=== PATIENT | male | born 1955 | race Caucasian/White ===

== ENCOUNTER → 2016-08-05 | Outpatient (CLI) | payer BC ==
[2016-08-05 07:50] LABS: CH 30.1; CHCM 36.5; HCT 41.5 % (39.0-53.0); HDW 3.54; HGB 14.7 gm/dL (13.0-17.5); Hyperchromasia Slight; MCH 29.3 pg (25.0-35.0); MCHC 35.3 g/dL (31.0-37.0); MCV 82.9 fL (80.0-100.0); Mean Platelet Volume 6.5; Poikilocytosis Slight; RBC 5.01 m/uL (4.30-5.90); RDW 13.6 % (11.5-15.5); WBC 8.7 k/uL (3.8-10.6)
[2016-08-05 08:08] LABS: Anion Gap 9 mmol/L; Blood Urea Nitrogen 16 mg/dL (9-20); Carbon Dioxide 25 mmol/L (22-30); Chloride 106 mmol/L (98-107); Non-African American GFR(MDRD) >60 (>60 ml/min/1.73 sqM); Potassium 4.3 mmol/L (3.5-5.1); Sodium 140 mmol/L (137-145)
== END | disposition home or self-care (01) ==
LOC: LABPAT 07:22
PROVIDERS: ATTEND Internal Medicine Interventional Cardiology
DX: I27.0 Primary pulmonary hypertension (principal)
CPT/HCPCS: 80051; 82565; 84520; 85027

== ENCOUNTER 2016-08-09 05:45 | Day surgery (SDC) | payer BC ==
[2016-08-09] MEDS ORDERED: ATORVASTATIN 80 MG TAB PO STA (06:04)
[2016-08-09] MEDS ORDERED: ALPRAZolam 0.5 MG TAB PO PRN (06:04)
[2016-08-09] MEDS ORDERED: SODIUM CHLORIDE 0.9% 1,000 ML in EMPTY BAG 1 BAG IV ONE (06:04)
[2016-08-09] MEDS ORDERED: ASPIRIN 325 MG TAB PO STA (06:04)
[2016-08-09] MEDS ORDERED: BENZOCAINE SPRAY 100 APPLIC/CAN TOPICAL PRN (06:04)
[2016-08-09] MEDS ORDERED: NITROGLYCERIN SL TABS 0.4 MG TAB SUBLINGUAL PRN (06:04)
[2016-08-09] MEDS ORDERED: ALPRAZolam 0.25 MG TAB PO PRN (06:04)
[2016-08-09] MEDS ORDERED: SODIUM CHLORIDE 0.9% 1,000 ML IV ONE (06:27)
[2016-08-09 06:41] LABS: INR 1.2 (<1.1); Prothrombin Time 12.4 sec (9.0-12.0)
[2016-08-09] MEDS ORDERED: diphenhydrAMINE 50 MG/ML 1 ML VIAL IVP ONE (07:30)
[2016-08-09] MEDS ORDERED: MIDAZOLAM 2 MG/2 ML VIAL IV ONE (07:30)
[2016-08-09] MEDS ORDERED: LIDOCAINE 2% INJ 20 MG/ML SQ ONE (07:34)
[2016-08-09] MEDS ORDERED: ENOXAPARIN 60 MG/0.6 ML SYRINGE SQ STA (07:34)
[2016-08-09] MEDS ORDERED: WARFARIN 10 MG TAB PO ONE (08:00)
[2016-08-09 08:04] LABS: Site PA
[2016-08-09 08:05] LABS: Site FA; Site RA
[2016-08-09] MEDS ORDERED: HYDROmorphone 2 MG/ML 1 ML SYRINGE IV ONE (08:10)
[2016-08-09] MEDS ORDERED: IOHEXOL 350 MG/ML 125ML BOTTLE INJ ONE (08:15)
[2016-08-09] MEDS ORDERED: SODIUM CHLORIDE 0.9% 1,000 ML IV SCH (08:30)
[2016-08-09] MEDS ORDERED: ACETAMINOPHEN TAB 325 MG TAB PO PRN (08:55)
[2016-08-09] MEDS ORDERED: METOPROLOL TARTRATE 25 MG TAB PO SCH (09:00)
[2016-08-09 09:08] VITALS: TEMP 97.8
[2016-08-09] MEDS ORDERED: fentaNYL (PF) 50 MCG/ML 2 ML AMP ONE (12:06)
[2016-08-09] MEDS ORDERED: MIDAZOLAM 2 MG/2 ML VIAL ONE (12:06)
[2016-08-09] MEDS: BENZOCAINE SPRAY 100 APPLIC/CAN TOPICAL ONE ×2 (12:26→12:34)
[2016-08-09] MEDS ORDERED: fentaNYL (PF) 50 MCG/ML 2 ML AMP IV ONE (12:38)
[2016-08-09] MEDS ORDERED: MIDAZOLAM 2 MG/2 ML VIAL IVP ONE ×2 (12:38→12:45)
[2016-08-09 13:02] VITALS: RESP 16
[2016-08-09 14:44] VITALS: BP 101/72
--- NOTE | 2016-08-09 14:44 | ECHOT ---
DATE OF SERVICE: CLINICAL INFORMATION: PROCEDURE: Mr. Kimball is a 61-year-old gentleman who is seen for the cardiac who underwent transesophageal echocardiogram to assess the aortic prosthetic valve. The patient was given intravenous sedation with versed and fentanyl and transesophageal echocardiogram was performed without any complications. FINDINGS: Left ventricular chamber is normal in size with normal left ventricular systolic functions. Mitral valve morphology is normal. Mild mitral regurgitation is noted. There is no evidence of thrombus in the left atrium or atrial appendage. Pulmonary vein flow was normal. There is normally functioning prosthetic mechanical prosthetic valve is noted in the aortic position. The leaflets are thin. There is no definite evidence of any thrombus or vegetations. The mean peak gradient was 30 and mean gradient was 20 mmHg across aortic prosthetic valve by transthoracic pictures. There was a physiological aortic regurgitation was noted, Intraatrial septum is intact. There is possible small PFO with [id number]-[id number] shunt only noted on coughing. There is mild atherosclerotic changes noted in the descending thoracic aorta. FINAL IMPRESSION: 1. There is mechanical prosthetic valve in aortic position which is opening normally. 2. The leaflets are thin. 3. There is no definite evidence of any vegetations or thrombus. 4. The mean gradient of 30 and peak gradient of 30 mmHg was noted across the prosthetic aortic valve by transthoracic pictures. 5. There is a physiological small aortic regurgitation noted. 6. There is physiologic mitral regurgitation is noted too. 7. The left ventricular systolic function is normal. There is evidence of mild mitral regurgitation and tricuspid and mitral valve morphology is normal. 8. There is a small PFO with iqfcb-[id number] shunt is noted while the patient is coughing. 9. There is minimal atherosclerotic plaque noted in the descending thoracic aorta.
[2016-08-09 16:49] VITALS: PULSE 78
[2016-08-09] MEDS ORDERED: ATORVASTATIN 80 MG TAB PO SCH (21:00)
[2016-08-09] MEDS ORDERED: amLODIPine 2.5 MG TAB PO SCH (21:00)
[2016-08-09] MEDS ORDERED: LISINOPRIL 5 MG TAB PO SCH (21:00)
--- NOTE | 2016-08-10 10:03 | CC ---
DATE OF SERVICE: 08/09/2016 PROCEDURE: Right and left heart catheterization and coronary angiography. Performed by Dr. Jaqueline Russell. CLINICAL INFORMATION: Melchor Kimball is a 61-year-old gentleman with a history of seizure disorder, probable bicuspid aortic valve, but had significant stenosis and regurgitation and in 2000 underwent aortic valve replacement with a mechanical #23 [employer] [employer]it valve. This procedure was performed here at [facility]. Because of increasing symptoms of chest discomfort with activity and shortness of breath and based on echocardiogram with valve dysfunction, he was advised to have coronary angiography and a transesophageal echo and brought in for the procedure electively. PROCEDURE NOTE: Under local anesthesia and strict aseptic precautions, a 6 Solomon Islander introducer was placed in the right femoral artery and 8 Solomon Islander introducer in the right femoral vein. Using a balloon-tipped floatation catheter, I performed right heart catheterization, check the hemodynamics and also all the pressors. I performed thermodilution hemodynamic assessment as well. Subsequently, using a standard left Raghu catheter, I performed coronary angiography of the left system. Using an AR2 catheter, I performed selective coronary injection of the right coronary artery. I did not check any LV pressures. Patient has a mechanical aortic valve. The sheath was taken out and Angio-Seal device used to secure hemostasis. The venous sheath was taken out and manual compression used to secure hemostasis and he was sent to the room in stable condition. He will have a transesophageal echo at noon time. CARDIAC CATHETERIZATION FINDINGS: The right atrial pressure was 10 mmHg, right ventricular pressure was 32/10, the pulmonary capillary wedge pressure was 14 mmHg. The V-wave was 21, pulmonary arterial pressure was 32/16 with a mean of 21. Thermodilution cardiac output was 6.6 L and a Georgina cardiac output was 6.3 L. CORONARY ANGIOGRAPHIC FINDINGS: RIGHT CORONARY ARTERY: A dominant vessel, totally occluded in the midportion and the PDA branch is very well opacified by injection of the left system and is a graftable vessel. RCA has 100% mid occlusion. LEFT MAIN CORONARY ARTERY: Short, patent, disease-free vessel that bifurcates into LAD and circumflex. Left main itself is free of significant disease. LEFT ANTERIOR DESCENDING CORONARY ARTERY: Good caliber vessel extends along the anterior wall, gives off septal and diagonal branches, runs all the way to the apex. The mid LAD has an 80% stenosis which represents progression of disease. This patient did not have any significant CAD when he underwent aortic valve replacement in 2000. LEFT POSTERIOR CIRCUMFLEX CORONARY ARTERY: This is a nondominant vessel, good caliber, good distribution, minor irregularities. No significant disease. LEFT VENTRICULOGRAM: This was not performed. FINAL IMPRESSION: This patient has significantly elevated pressures on the right side with a right atrial pressure in the 10 mmHg. There is no significant pulmonary hypertension. There is a total occlusion of right coronary artery, which is filling from collaterals coming from the left system. The left main and circumflex are free of significant disease. Left anterior descending artery is a large caliber, large distribution vessel, with 80% mid lesion. RECOMMENDATIONS: I am recommending that following transesophageal echo, we will make a definitive determination, but if there is Prosthetic valve dysfX he will require an aortic valve replacement with a tissue valve and a RODRIGUEZ to LAD and a vein graft to the RCA, if the valve is OK, will do PCI of LAD and consider PCI of RCA SUPERVISOR MARBLE at a later date. Findings were discussed with the patient and his [id number]-xp-eug. His was not available but she would come back later on today. I also spoke to Dr. Michele and I will have him see the patient as an outpatient if he needs Surgery. Patient has received 10 mg of Coumadin and also 60 mg of Lovenox and his anticoagulation will be resumed and aspirin 81 mg daily and Lopressor 25 mg daily were added. Patient will be discharged later today after the transesophageal echo. Moderate conscious sedation for 40 min was provided with Versed and Benadryl. Pt was monitored closely. MTDD
[2016-08-10] MEDS ORDERED: WARFARIN 5 MG TAB PO SCH (21:00)
[2016-08-10] MEDS ORDERED: WARFARIN 2.5 MG TAB PO SCH (21:00)
== END 2016-08-09 16:10 | disposition home or self-care (01) ==
LOC: CATHCVL 05:45
PROVIDERS: ATTEND Internal Medicine Interventional Cardiology
DX: I25.110 Atherosclerotic heart disease of native coronary artery with unstable angina pectoris (principal); I25.82 Chronic total occlusion of coronary artery; I08.0 Rheumatic disorders of both mitral and aortic valves; I10 Essential (primary) hypertension; Z95.4 Presence of other heart-valve replacement; Z82.49 Family history of ischemic heart disease and other diseases of the circulatory system; G40.909 Epilepsy, unspecified, not intractable, without status epilepticus; Z79.01 Long term (current) use of anticoagulants; Z79.899 Other long term (current) drug therapy
CPT/HCPCS: 93312; 93320; 93325; 93460; 85018; 82810; 85610; 99152 ×2; 99153 ×2; C1760; C1769 ×3; C1894 ×2; J2001; J2250; J1170; J1200; J1650; J3010; Q9967

== ENCOUNTER → 2016-08-16 | Outpatient (CLI) | payer BC | END | disposition home or self-care (01) | LOC: LABWHC1 16:20 | PROVIDERS: ATTEND Psychiatry & Neurology Neurology | DX: G40.909 Epilepsy, unspecified, not intractable, without status epilepticus (principal) | CPT/HCPCS: 36415; 80177 ==

== ENCOUNTER → 2016-08-24 | Outpatient (CLI) | payer BC ==
[2016-08-24 10:03] LABS: CH 29.7; CHCM 34.5; HDW 3.31; HGB 14.2 gm/dL (13.0-17.5); MCH 28.5 pg (25.0-35.0); MCV 86.5 fL (80.0-100.0); Mean Platelet Volume 7.1; RBC 4.97 m/uL (4.30-5.90); RDW 13.9 % (11.5-15.5); WBC 7.6 k/uL (3.8-10.6)
[2016-08-24 10:36] LABS: Anion Gap 9 mmol/L; Blood Urea Nitrogen 16 mg/dL (9-20); Carbon Dioxide 28 mmol/L (22-30); Chloride 105 mmol/L (98-107); Non-African American GFR(MDRD) >60 (>60 ml/min/1.73 sqM); Potassium 4.3 mmol/L (3.5-5.1); Sodium 142 mmol/L (137-145)
== END | disposition home or self-care (01) ==
LOC: LABPAT 09:25
PROVIDERS: ATTEND Internal Medicine Interventional Cardiology
DX: I25.10 Atherosclerotic heart disease of native coronary artery without angina pectoris (principal)
CPT/HCPCS: 36415; 80051; 82565; 84520; 85027

== ENCOUNTER 2016-08-30 06:24 | Day surgery (SDC) | payer BC ==
[~2016-08-30 06:24] MED LIST: ALPRAZolam 0.25 MG TAB PO PRN; ALPRAZolam 0.5 MG TAB PO PRN; ASPIRIN 325 MG TAB PO STA; ATORVASTATIN 80 MG TAB PO STA; NITROGLYCERIN SL TABS 0.4 MG TAB SUBLINGUAL PRN; SODIUM CHLORIDE 0.9% 1,000 ML in EMPTY BAG 1 BAG IV ONE
[2016-08-30] MEDS ORDERED: diphenhydrAMINE 50 MG/ML 1 ML VIAL ONE (07:13)
[2016-08-30] MEDS ORDERED: MIDAZOLAM 2 MG/2 ML VIAL ONE (07:13)
[2016-08-30] MEDS ORDERED: LIDOCAINE 2% INJ 20 MG/ML (20 ML MDV) ONE (07:13)
[2016-08-30] MEDS ORDERED: fentaNYL (PF) 50 MCG/ML 2 ML AMP IV ONE (07:20)
[2016-08-30] MEDS ORDERED: diphenhydrAMINE 50 MG/ML 1 ML VIAL IVP ONE (07:20)
[2016-08-30] MEDS ORDERED: fentaNYL (PF) 50 MCG/ML 2 ML AMP ONE (07:20)
[2016-08-30] MEDS ORDERED: MIDAZOLAM 2 MG/2 ML VIAL IV ONE (07:27)
[2016-08-30] MEDS ORDERED: LIDOCAINE 2% INJ 20 MG/ML SQ ONE (07:29)
[2016-08-30 07:31] LABS: INR 1.6 (<1.1); Prothrombin Time 15.7 sec (9.0-12.0)
[2016-08-30] MEDS ORDERED: BIVALIRUDIN BOLUS 250 MG/50 ML IV ONE (07:37)
[2016-08-30] MEDS ORDERED: BIVALIRUDIN 250 MG in SODIUM CHLORIDE 0.9% 50 ML IV ONE (07:37)
[2016-08-30] MEDS ORDERED: NITROGLYCERIN 1000MCG/10ML SYRINGE INTRACORON ONE (08:01)
[2016-08-30] MEDS ORDERED: IOHEXOL 350 MG/ML 125ML BOTTLE INJ ONE (08:10)
[2016-08-30] MEDS ORDERED: CLOPIDOGREL 75 MG TAB ONE ×2 (08:11)
[2016-08-30] MEDS ORDERED: NITROGLYCERIN SL TABS 0.4 MG TAB SUBLINGUAL PRN (08:15)
[2016-08-30] MEDS ORDERED: ATROPINE SULFATE 0.1 MG/ML 10ML SYRINGE IV PRN (08:15)
[2016-08-30] MEDS ORDERED: CLOPIDOGREL 75 MG TAB PO ONE (08:15)
[2016-08-30] MEDS ORDERED: ZOLPIDEM 5 MG TAB PO PRN (08:15)
[2016-08-30] MEDS ORDERED: RX INFO: IV CONTRAST WAS GIVEN 1 EACH MISC MISCELLANE PRN (08:15)
[2016-08-30] MEDS ORDERED: MAG HYDROX/AL HYDROX/SIMETH 30 ML CUP PO PRN (08:15)
[2016-08-30] MEDS: SODIUM CHLORIDE 0.9% 1,000 ML IV SCH (08:30)
[2016-08-30] MEDS: ENOXAPARIN 80 MG/0.8 ML SYRINGE SQ STA ×2 (08:50→09:56)
[2016-08-30] MEDS ORDERED: ASPIRIN 81 MG CHEW PO SCH (09:51)
[2016-08-30] MEDS ORDERED: WARFARIN 10 MG TAB PO STA (09:59)
--- NOTE | 2016-08-30 10:35 | PTCA ---
DATE OF SERVICE: 08/30/2016 PROCEDURE: PTCA and stenting of a proximal/mid LAD. PERFORMED BY: Dr. Jaqueline Russell. CLINICAL INFORMATION: Mr. Melchor Kimball is a 61-year-old gentleman with a known history of aortic valve replacement that was performed in 2000 with a mechanical aortic valve. Because of symptoms of unstable angina and also because of increased gradient across the aortic valve, I performed a right and left heart catheterization for this patient on the 09 of August. Study at that time revealed that the RCA was totally occluded. LAD had a significant lesion, but the valve itself did not seem significantly compromised that a valve replacement was necessary. Under the circumstances, he was advised to percutaneous intervention of the LAD and brought in for the procedure electively. He also has hypertension, hyperlipidemia, and takes Coumadin on a regular basis. He has a seizure disorder as well and has been very compliant with antiseizure medications. PROCEDURE NOTE: Under local anesthesia and strict aseptic precautions, a 6 Somali introducer was placed in the left femoral artery. The vein seemed to be overlapping the artery and there was some difficulty gaining access. A 6 Somali introducer was placed. I used initially a JL4 catheter but had difficulty cannulating the vessel. A 3.5 XBLAD guide catheter was used to cannulate the left coronary artery with the help of a wire. BMW wire was used to cross the lesion. Predilatation was performed using a 2.5 caliber, 20 mm long NC Trek balloon. I then deployed a 3.0 caliber, 20 mm long Promus stent with 13 atmospheres. Patient had chest pain, subtle anterior ST elevation. Excellent angiographic result was achieved without complication. The sheath was taken out and Angio-Seal device used to secure hemostasis. Patient received Angiomax bolus and infusion as per protocol. He also received 600 mg of Plavix. Moderate conscious sedation was provided for a total duration of one hour with fentanyl and Versed and Benadryl combination. Oxygen saturation was monitored closely. Excellent angiographic result without complication was achieved and I expect the patient to be discharged tomorrow.
--- NOTE | 2016-08-30 10:37 | LTR ---
August 30, 2016 DOREEN GARCÍA MD RE: Melchor Kimball Dear Dr. García: Thank you for the opportunity to participate in the care of . Melchor Kimball. Please find enclosed by detailed PTCA report for your records. This gentleman had an excellent angiographic result and I expect that he will be discharged tomorrow if he remains stable. Thank you for referral and please call for questions. With kindest regards. Sincerely yours, MARCE ROBINS MD
[2016-08-30 12:14] LABS: Magnesium 2.2 mg/dL (1.6-2.3); Potassium 4.1 mmol/L (3.5-5.1)
[2016-08-30 13:47] VITALS: BMI 29.3
[2016-08-30] MEDS ORDERED: ACETAMINOPHEN TAB 325 MG TAB PO PRN (20:13)
[2016-08-30] MEDS: METOPROLOL TARTRATE 25 MG TAB PO SCH (20:32)
[2016-08-30 20:44] VITALS: RESP 16
[2016-08-30] MEDS ORDERED: LISINOPRIL 5 MG TAB PO SCH (21:00)
[2016-08-30] MEDS ORDERED: amLODIPine 2.5 MG TAB PO SCH (21:00)
[2016-08-30] MEDS ORDERED: ATORVASTATIN 80 MG TAB PO SCH (21:00)
[2016-08-31] MEDS: SODIUM CHLORIDE 0.9% 1,000 ML IV SCH (05:20)
[2016-08-31 06:27] LABS: Basophils % (A) 0 %; CH 29.7; CHCM 35.1; Eosinophils # (A) 0.2 k/uL (0-0.7); Eosinophils % (A) 4 %; HDW 3.28; HGB 12.1 gm/dL (13.0-17.5); Luc # (Auto) 0.08; Luc % (Auto) 1; Lymphocytes # (A) 0.8 k/uL (1.0-4.8); Lymphocytes % (A) 15 %; MCH 28.7 pg (25.0-35.0); MCHC 33.8 g/dL (31.0-37.0); Mean Platelet Volume 6.8; Monocytes # (A) 0.4 k/uL (0-1.0); Monocytes % (A) 8 %; Neutrophils # (A) 3.8 k/uL (1.3-7.7); Neutrophils % (A) 72 %; RBC 4.23 m/uL (4.30-5.90); RDW 13.8 % (11.5-15.5); WBC 5.3 k/uL (3.8-10.6); WBC (Perox) 5.81
[2016-08-31 06:30] LABS: INR 1.5 (<1.1); Prothrombin Time 14.3 sec (9.0-12.0)
[2016-08-31 06:51] LABS: Anion Gap 7 mmol/L; Blood Urea Nitrogen 13 mg/dL (9-20); Calcium 8.7 mg/dL (8.4-10.2); Carbon Dioxide 25 mmol/L (22-30); Chloride 105 mmol/L (98-107); Glucose 100 mg/dL (74-99); Non-African American GFR(MDRD) >60 (>60 ml/min/1.73 sqM); Potassium 4.3 mmol/L (3.5-5.1); Sodium 137 mmol/L (137-145)
[2016-08-31] MEDS ORDERED: ENOXAPARIN 100 MG/ML SYRINGE SQ STA (07:25)
[2016-08-31 08:36] VITALS: BP 127/69; PULSE 71; TEMP 97.6
[2016-08-31] MEDS: METOPROLOL TARTRATE 25 MG TAB PO SCH (08:43)
[2016-08-31] MEDS ORDERED: CLOPIDOGREL 75 MG TAB PO SCH (09:00)
[2016-08-31] MEDS ORDERED: ASPIRIN 81 MG CHEW PO SCH (09:00)
--- NOTE | 2016-08-31 10:58 | DS ---
DATE OF ADMISSION: 08/30/2016 DATE OF DISCHARGE: 08/31/2016 DIAGNOSIS: 1. Unstable angina. 2. History of mechanical aortic valve replacement. 3. History of seizure disorder. 4. Status post PCI of mid/proximal left anterior descending coronary artery. Mr. Melchor Kimball was brought into the hospital electively for a PCI of LAD. He is known to have a total right coronary artery occlusion and a significant lesion in the LAD. He also has a mechanical aortic valve that was evaluated by [facility]BREEN, was found to be fairly stable with mild decrease in gradient. On 08/30/2016 from left femoral approach, had stenting of mid LAD performed uneventfully. Drug-eluting stent was placed. He received 10 mg of Coumadin yesterday and 80 mg of Lovenox subQ. This morning, INR is 1.5. We will give him additional Lovenox today and his Coumadin has been resumed at his home dose and I will see him in the office on morning, 48 hours from today. His left groin is clean and dry. He is asymptomatic, he had uneventful night. His vital signs are stable. His laboratory data are acceptable except for INR. Blood pressure 120/70, pulse rate is 60 per minute. S1, S2 heard normally, ejection systolic murmur with prosthetic valve clicks are audible. Lungs are clear. Abdomen is soft, nontender. Left groin is clean and dry with a good pulse without bruit. This patient will be discharged today. Discharge instructions regarding activity, diet, medications were given and he will be seen by me in the office at 8:15 a.m. on 09/02/2016. BECK
[2016-08-31] MEDS ORDERED: ATORVASTATIN 80 MG TAB PO SCH (21:00)
== END 2016-08-31 09:54 | disposition home or self-care (01) ==
LOC: CATHCVL 06:24 → 6SEL 08:11 → CATHCVL 08-31 09:54
PROVIDERS: ATTEND Internal Medicine Interventional Cardiology
DX: I25.110 Atherosclerotic heart disease of native coronary artery with unstable angina pectoris (principal); I25.82 Chronic total occlusion of coronary artery; I27.2 Other secondary pulmonary hypertension; I10 Essential (primary) hypertension; Z82.49 Family history of ischemic heart disease and other diseases of the circulatory system; G40.909 Epilepsy, unspecified, not intractable, without status epilepticus; Z95.2 Presence of prosthetic heart valve; Z79.01 Long term (current) use of anticoagulants; Z79.82 Long term (current) use of aspirin; Z79.899 Other long term (current) drug therapy
CPT/HCPCS: 80051; 80048; 83735; 85025; 85610 ×2; 99152; 99153 ×2; C9600; C1769 ×3; C1760; C1887 ×3; C1725; C1894; C1874; J2001; J2250; J1200; J1650 ×2; J3010; J0583; Q9967

== ENCOUNTER → 2016-09-09 | Outpatient (CLI) | payer BC ==
--- NOTE | 2016-09-09 11:20 | US ---
EXAMINATION TYPE: US venous doppler duplex LE RT DATE OF EXAM: 09/09/2016 11:13 AM COMPARISON: NONE CLINICAL HISTORY: R60.0 Leg edema. Right leg /foot swelling SIDE PERFORMED: Right TECHNIQUE: The lower extremity deep venous system is examined utilizing real time linear array sonog nia with graded compression, doppler sonography and color-flow sonography. VESSELS IMAGED: External Iliac Vein (EIV) Common Femoral Vein Deep Femoral Vein Greater Saphenous Vein * Femoral Vein Popliteal Vein Small Saphenous Vein * Proximal Calf Veins (* superficial vessels) Right Leg: Negative for DVT Results called to Nereyda, at time of exam IMPRESSION: 1. No diagnostic evidence of DVT
== END | disposition home or self-care (01) ==
LOC: RADUSWWP 10:46
PROVIDERS: ATTEND Family Medicine
DX: R60.0 Localized edema (principal)

== ENCOUNTER 2018-12-12 18:45 | Inpatient (IN) | payer BC ==
[2018-12-12] MEDS ORDERED: SODIUM CHLORIDE 0.9% 500 ML 500 ML IV STA (19:43)
[2018-12-12] MEDS ORDERED: DILTIAZEM DRIP BOLUS FROM BAG 1 MG SOLN IV ONE (19:44)
[2018-12-12] MEDS ORDERED: DILTIAZEM 125 MG in SODIUM CHLORIDE 0.9% 100 ML IV SCH (19:45)
[2018-12-12 20:05] LABS: Albumin 4.2 g/dL (3.5-5.0); Calcium 9.1 mg/dL (8.4-10.2); INR 4.4 (<1.2); Partial Thromboplastin Time 45.7 sec (22.0-30.0); Potassium 4.3 mmol/L (3.5-5.1); Prothrombin Time 42.5 sec (9.0-12.0); Total Bilirubin 0.7 mg/dL (0.2-1.3); Total Protein 6.5 g/dL (6.3-8.2)
--- NOTE | 2018-12-12 20:06 | ED ---
General Adult HPI - General Chief complaint: Arrhythmia/Palpitations Stated complaint: Chest pain Time Seen by Provider: 12/12/18 19:00 Source: patient, RN notes reviewed Mode of arrival: ambulatory Limitations: no limitations - History of Present Illness Initial comments: This is a 63-year-old male with a past medical history significant for an aortic valve replacement. Patient is on Coumadin for that. Patient also has a history of stent placement. Patient presents to the emergency department today because he started getting short of breath about 6:00 this afternoon. Patient states he also is having some chest discomfort as well. Patient denies feeling any palpitations. He did note that any exertion made her much more short of breath. Patient states lying here with oxygen he doesn't feel that short of breath. Patient denies any recent fever chills or cough. Patient denies headache patient denies numbness weakness. Patient denies abdominal pain patient denies nausea vomiting diarrhea. Patient denies any illegal drug use. Patient denies any strx-lfh-jyhnkpa drug use yesterday or today. Patient denies any recent trips or travel patient denies any calf tenderness or leg swelling - Related Data Home Medications Medication Instructions Recorded Confirmed Warfarin Sodium 5 mg PO TUWEFR 11/09/15 12/12/18 Atorvastatin [Lipitor] 80 mg PO HS 02/26/16 12/12/18 Metoprolol Tartrate 25 mg PO HS 08/26/16 12/12/18 Aspirin 81 mg PO HS 12/12/18 12/12/18 Clopidogrel [Plavix] 75 mg PO HS 12/12/18 12/12/18 Warfarin [Cou[facility]] [facility] 12/12/18 12/12/18 Previous Rx's Medication Instructions Recorded Nitroglycerin Sl Tabs [Nitrostat] 0.4 mg SUBLINGUAL Q5M PRN #25 tab 08/31/16 Allergies Allergy/AdvReac Type Severity Reaction Status Date / Time No Known Allergies Allergy Verified 12/12/18 19:22 Review of Systems ROS Statement: Those systems with pertinent positive or pertinent negative responses have been documented in the HPI. ROS Other: All systems not noted in ROS Statement are negative. Past Medical History Past Medical History: Coronary Artery Disease (CAD), Hyperlipidemia, Hypertension, Seizure Disorder Additional Past Medical History / Comment(s): 04/17/15 Pt presented to [facility] ER via EMS. Pt is unable to participate in obtaining PMH at this time. He is un able to carry on conversation - moans on occasion. is at bedside and assists with PMH. Pt was last seen last nite acting normally. 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 He was nonverbal except for moaning and groaning. She went into the kitchen to call someone for help and when she went back to the bedroom pt was sitting on edge of bed-got up with staggering gait to go to bathroom and sat on the toilet. then called 911 and noted pt to start shaking and then fell and struck head on floor and possible corner of bed. He is admitted with clinical impression of AMS, SIRS, lactic acidosis. states pt's only known medical history is an aortic valve replacement in 2000 and that he is noncompliant with his coumadin and rarely goes to see a doctor. History of Any Multi-Drug Resistant Organisms: None Reported Past Surgical History: Coronary Bypass/CABG Additional Past Surgical History / Comment(s): AVR 2000. Past Anesthesia/Blood Transfusion Reactions: No Reported Reaction Past Psychological History: No Psychological Hx Reported Smoking Status: Current every day smoker Past Alcohol Use History: None Reported Past Drug Use History: None Reported - Past Family History Father Family Medical History: Dementia Additional Family Medical History / Comment(s): Father is 90 yrs old. Mother Family Medical History: No Reported History Additional Family Medical History / Comment(s): Mother in her sleep at age 70. General Exam - General Exam Comments Initial Comments: GENERAL: Patient is well-developed and well-nourished. Patient is nontoxic and well- hydrated and is in mild distress. ENT: Neck is soft and supple. No significant lymphadenopathy is noted. Oropharynx is clear. Moist mucous membranes. Neck has full range of motion without eliciting any pain. EYES: The sclera were anicteric and conjunctiva were pink and moist. Extraocular movements were intact and pupils were equal round and reactive to light. Eyelids were unremarkable. PULMONARY: Unlabored respirations. Good breath sounds bilaterally. No audible rales rhonchi or wheezing was noted. CARDIOVASCULAR: Patient is a rapid heart rate about 160 beats a minute. ABDOMEN: Soft and nontender with normal bowel sounds. No palpable organomegaly was noted. There is no palpable pulsatile mass. SKIN: Skin is clear with no lesions or rashes and otherwise unremarkable. NEUROLOGIC: Patient is alert and oriented x3. Cranial nerves II through XII are grossly intact. Motor and sensory are also intact. Normal speech, volume and content. Symmetrical smile. MUSCULOSKELETAL: Normal extremities with adequate strength and full range of motion. No lower extremity swelling or edema. No calf tenderness. LYMPHATICS: No significant lymphadenopathy is noted PSYCHIATRIC: Normal psychiatric evaluation. Limitations: no limitations Course Vital Signs 12/12/18 12/12/18 12/12/18 19:02 19:07 20:14 Temperature 98.4 F Pulse Rate 167 H 192 H 144 H Respiratory 22 18 18 Rate Blood Pressure 130/78 127/82 137/86 O2 Sat by Pulse 97 98 96 Oximetry Medical Decision Making - Medical Decision Making Patient's EKG shows atrial fibrillation with rapid ventricular response at 157 beats a minute QRS is 92 QT interval 296 QTC is 478. EKG shows slight ST segment depression in precordial leads V4 through V6. Chest x-ray shows no acute abnormality. I started the patient Cardizem after I gave the patient a Cardizem bolus. I went back and reevaluate the patient he felt much better just resting but his heart rate still would fluctuate between 130 and 160. I spoke with Dr. MOLINA agreed to admit the patient admitted the patient I continued the Cardizem drip on the floor I consult to cardiology. - Lab Data Result diagrams: 12/12/18 19:12/12/18 19:05 Lab Results 12/12/18 12/12/18 12/12/18 Range/Units 19:05 19:05 19:05 WBC 7.5 (3.8-10.6) k/uL RBC 5.14 (4.30-5.90) m/uL Hgb 14.6 (13.0-17.5) gm/dL Hct 41.5 (39.0-53.0) % MCV 80.7 (80.0-100.0) fL MCH 28.5 (25.0-35.0) pg MCHC 35.2 (31.0-37.0) g/dL RDW 16.2 H (11.5-15.5) % Plt Count 139 L (150-450) k/uL Neutrophils % 69 % Lymphocytes % 19 % Monocytes % 7 % Eosinophils % 3 % Basophils % 1 % Neutrophils # 5.2 (1.3-7.7) k/uL Lymphocytes # 1.4 (1.0-4.8) k/uL Monocytes # 0.5 (0-1.0) k/uL Eosinophils # 0.2 (0-0.7) k/uL Basophils # 0.1 (0-0.2) k/uL Poikilocytosis Slight Anisocytosis Slight PT 42.5 H (9.0-12.0) sec INR 4.4 H (<1.2) APTT 45.7 H (22.0-30.0) sec Sodium 136 L (137-145) mmol/L Potassium 4.3 (3.5-5.1) mmol/L Chloride 100 (98-107) mmol/L Carbon Dioxide 25 (22-30) mmol/L Anion Gap 11 mmol/L BUN 19 (9-20) mg/dL Creatinine 1.11 (0.66-1.25) mg/dL Est GFR (CKD-EPI)AfAm 81 (>60 ml/min/1.73 sqM) Est GFR (CKD-EPI)NonAf 70 (>60 ml/min/1.73 sqM) Glucose 218 H (74-99) mg/dL Calcium 9.1 (8.4-10.2) mg/dL Magnesium 2.0 (1.6-2.3) mg/dL Total Bilirubin 0.7 (0.2-1.3) mg/dL AST 25 (17-59) U/L ALT 38 (21-72) U/L Alkaline Phosphatase 90 (38-126) U/L Troponin I (0.000-0.034) ng/mL Total Protein 6.5 (6.3-8.2) g/dL Albumin 4.2 (3.5-5.0) g/dL TSH 6.270 H (0.465-4.680) mIU/L Free T4 1.20 (0.78-2.19) ng/dL 12/12/18 Range/Units 19:05 WBC (3.8-10.6) k/uL RBC (4.30-5.90) m/uL Hgb (13.0-17.5) gm/dL Hct (39.0-53.0) % MCV (80.0-100.0) fL MCH (25.0-35.0) pg MCHC (31.0-37.0) g/dL RDW (11.5-15.5) % Plt Count (150-450) k/uL Neutrophils % % Lymphocytes % % Monocytes % % Eosinophils % % Basophils % % Neutrophils # (1.3-7.7) k/uL Lymphocytes # (1.0-4.8) k/uL Monocytes # (0-1.0) k/uL Eosinophils # (0-0.7) k/uL Basophils # (0-0.2) k/uL Poikilocytosis Anisocytosis PT (9.0-12.0) sec INR (<1.2) APTT (22.0-30.0) sec Sodium (137-145) mmol/L Potassium (3.5-5.1) mmol/L Chloride (98-107) mmol/L Carbon Dioxide (22-30) mmol/L Anion Gap mmol/L BUN (9-20) mg/dL Creatinine (0.66-1.25) mg/dL Est GFR (CKD-EPI)AfAm (>60 ml/min/1.73 sqM) Est GFR (CKD-EPI)NonAf (>60 ml/min/1.73 sqM) Glucose (74-99) mg/dL Calcium (8.4-10.2) mg/dL Magnesium (1.6-2.3) mg/dL Total Bilirubin (0.2-1.3) mg/dL AST (17-59) U/L ALT (21-72) U/L Alkaline Phosphatase (38-126) U/L Troponin I <0.012 (0.000-0.034) ng/mL Total Protein (6.3-8.2) g/dL Albumin (3.5-5.0) g/dL TSH (0.465-4.680) mIU/L Free T4 (0.78-2.19) ng/dL Critical Care Time Critical Care Time: Yes Total Critical Care Time: 35 Disposition Clinical Impression: Atrial fibrillation with rapid ventricular response Disposition: ADMITTED IP TO THIS HOSP Referrals: Fernie García MD [Primary Care Provider] - 1-2 days Time of Disposition: 20:45
[2018-12-12 20:07] LABS: Anisocytosis Slight; Basophils # (A) 0.1 k/uL (0-0.2); Basophils % (A) 1 %; Eosinophils # (A) 0.2 k/uL (0-0.7); Eosinophils % (A) 3 %; HCT 41.5 % (39.0-53.0); HGB 14.6 gm/dL (13.0-17.5); Lymphocytes # (A) 1.4 k/uL (1.0-4.8); Lymphocytes % (A) 19 %; MCH 28.5 pg (25.0-35.0); MCHC 35.2 g/dL (31.0-37.0); MCV 80.7 fL (80.0-100.0); Monocytes # (A) 0.5 k/uL (0-1.0); Monocytes % (A) 7 %; Neutrophils # (A) 5.2 k/uL (1.3-7.7); Neutrophils % (A) 69 %; Platelet Count 139 k/uL (150-450); Poikilocytosis Slight; RBC 5.14 m/uL (4.30-5.90); RDW 16.2 % (11.5-15.5); WBC 7.5 k/uL (3.8-10.6)
--- NOTE | 2018-12-12 20:10 | XR ---
EXAMINATION TYPE: XR chest 2V DATE OF EXAM: 12/12/2018 COMPARISON: 02/26/2016 HISTORY: Dysrhythmia TECHNIQUE: Frontal and lateral views of the chest are obtained. FINDINGS: There is no heart failure nor confluent pneumonic infiltrate. Heart size is normal. There are sternal wires. There are chest leads. Costophrenic angles are clear. Bony thorax is intact. IMPRESSION: No active cardiopulmonary disease. Normal heart. No change.
[2018-12-12 20:21] LABS: T4, Free (Free Thyroxine) 1.2 ng/dL (0.78-2.19)
[2018-12-12] MEDS ORDERED: NITROGLYCERIN SL TABS 0.4 MG TAB SUBLINGUAL PRN (20:46)
[2018-12-12 22:54] VITALS: BMI 29.5
[2018-12-13 06:52] LABS: Basophils # (A) 0.1 k/uL (0-0.2); Basophils % (A) 1 %; Eosinophils # (A) 0.2 k/uL (0-0.7); Eosinophils % (A) 3 %; HCT 40.5 % (39.0-53.0); HGB 13.9 gm/dL (13.0-17.5); Lymphocytes # (A) 1.3 k/uL (1.0-4.8); Lymphocytes % (A) 17 %; MCHC 34.3 g/dL (31.0-37.0); MCV 81.7 fL (80.0-100.0); Mean Platelet Volume 6.3; Monocytes # (A) 0.5 k/uL (0-1.0); Monocytes % (A) 7 %; Neutrophils # (A) 5.2 k/uL (1.3-7.7); Neutrophils % (A) 70 %; Platelet Count 143 k/uL (150-450); RBC 4.96 m/uL (4.30-5.90); RDW 14.4 % (11.5-15.5); WBC 7.5 k/uL (3.8-10.6)
[2018-12-13 07:03] LABS: INR 4.5 (<1.2); Partial Thromboplastin Time 45.9 sec (22.0-30.0); Prothrombin Time 43.4 sec (9.0-12.0)
[2018-12-13 07:24] LABS: African American GFR (CKD) >90 (>60 ml/min/1.73 sqM); Anion Gap 9 mmol/L; Blood Urea Nitrogen 18 mg/dL (9-20); Calcium 9.3 mg/dL (8.4-10.2); Carbon Dioxide 24 mmol/L (22-30); Chloride 106 mmol/L (98-107); Cholesterol 176 mg/dL (<200); Glucose 130 mg/dL (74-99); HDL Cholesterol 34 mg/dL (40-60); LDL Cholesterol,Calculated 111 mg/dL (0-99); Potassium 4.4 mmol/L (3.5-5.1); Sodium 139 mmol/L (137-145); Triglycerides 155 mg/dL (<150)
[2018-12-13] MEDS ORDERED: ASPIRIN 325 MG TAB PO SCH (09:00)
--- NOTE | 2018-12-13 09:58 | P.CRDCN ---
History of Present Illness Consult date: 12/13/18 Requesting physician: Jay E Sheet Consult reason: atrial fibrillation Chief complaint: Chest pain and heart racing History of present illness: This is a pleasant 63-year-old gentleman who follows regularly with Dr. Tian Russell in the office. Patient has a known history of aortic valve replacement with a mechanical [facility] Sumit valve in 2000 , Coronary artery disease with prior LAD stenting in 2017, hypertension, hyperlipidemia, seizure disorder, he presents to the hospital on this occasion with symptoms of chest discomfort with the feeling that his heart was racing fast. He also noticed himself to be a mildly short of breath, he denied any dizziness or lightheadedness. His EKG on presentation here showed atrial fibrillation with a rapid ventricular response. Patient denies any prior history of atrial fibrillation. Chest x-ray did not show any active cardiopulmonary disease. Blood pressure 115/70 with a heart rate in the 70s, temperature 90.7 point 90s 94% on room air. White blood cell count 7.5, hemoglobin 13.9, platelet count 143. Pro time 43.4 with an INR 4.5, sodium 139, potassium 4.4, BUN 18, creatinine 0.9. Troponin 0.012, 0.740, 1.2. Cholesterol 176, triglycerides 155, LDL 111, HDL 34, TSH is 6.2 with a free T4 of 1.2. At the time of my examination this morning, patient is currently chest pain-free. He is on IV Cardizem drip. He has converted to normal sinus rhythm, heart rate in the 80s this morning. Past Medical History Past Medical History: Coronary Artery Disease (CAD), Hyperlipidemia, Hypertension, Seizure Disorder Additional Past Medical History / Comment(s): 04/17/15 Pt presented to [facility] ER via EMS. Pt is unable to participate in obtaining PMH at this time. He is unab le to carry on conversation - moans on occasion. is at bedside and assists with PMH. Pt was last seen last nite acting normally. 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 He was nonverbal except for moaning and groaning. She went into the kitchen to call someone for help and when she went back to the bedroom pt was sitting on edge of bed-got up with staggering gait to go to bathroom and sat on the toilet. then called 911 and noted pt to start shaking and then fell and struck head on floor and possible corner of bed. He is admitted with clinical impression of AMS, SIRS, lactic acidosis. states pt's only known medical history is an aortic valve replacement in 2000 and that he is noncompliant with his coumadin and rarely goes to see a doctor. History of Any Multi-Drug Resistant Organisms: None Reported Past Surgical History: Coronary Bypass/CABG Additional Past Surgical History / Comment(s): AVR 2000. Past Anesthesia/Blood Transfusion Reactions: No Reported Reaction Past Psychological History: No Psychological Hx Reported Additional Psychological History / Comment(s): Pt resides with his spouse and children ages 21 and 24yrs. He is independent. He uses no assistive device. Smoking Status: Never smoker Past Alcohol Use History: None Reported Past Drug Use History: None Reported - Past Family History Father Family Medical History: Dementia Additional Family Medical History / Comment(s): Father is 90 yrs old. Mother Family Medical History: No Reported History Additional Family Medical History / Comment(s): Mother in her sleep at age 70. Medications and Allergies Home Medications Medication Instructions Recorded Confirmed Type Warfarin Sodium 5 mg PO TUWEFR 11/09/15 12/12/18 History Atorvastatin [Lipitor] 80 mg PO HS 02/26/16 12/12/18 History Metoprolol Tartrate 25 mg PO HS 08/26/16 12/12/18 History Nitroglycerin Sl Tabs [Nitrostat] 0.4 mg SUBLINGUAL Q5M PRN #25 tab 08/31/16 12/12/18 Rx Aspirin 81 mg PO HS 12/12/18 12/12/18 History Clopidogrel [Plavix] 75 mg PO HS 12/12/18 12/12/18 History Warfarin [Coumadin] 7.5 mg PO SUMOTHSA 12/12/18 12/12/18 History Allergies Allergy/AdvReac Type Severity Reaction Status Date / Time No Known Allergies Allergy Verified 12/12/18 19:22 Physical Exam Vitals: Vital Signs Temp Pulse Pulse Resp BP BP Pulse Ox 12/13/18 03:40 97.9 F 74 18 115/70 94 L 12/12/18 23:41 88 18 12/12/18 22:20 88 18 117/78 97 12/12/18 22:00 96 12/12/18 21:56 98.4 F 94 18 134/82 96 12/12/18 21:36 97 18 120/80 98 12/12/18 20:14 144 H 18 137/86 96 12/12/18 19:07 192 H 18 127/82 98 12/12/18 19:02 98.4 F 167 H 22 130/78 97 Intake and Output 12/12/18 12/13/18 12/13/18 22:59 06:59 14:59 Intake Total 10 Balance 10 Intake: Intake, IV Titration 10 Amount Diltiazem 125 mg In 10 Sodium Chloride 0.9% 100 ml @ 5 MG/HR 5 mls/hr IV .Q24H [facility] Rx#:[id number] Other: Voiding Method Toilet # Voids 1 Weight 86.183 kg 93.5 kg PHYSICAL EXAMINATION: GENERAL: 63-year-old gentleman in no acute distress at the time of my examination HEENT: Head is atraumatic, normocephalic. Pupils equal, round. Sclera anicteric. Conjunctiva are clear. Mucous membranes of the mouth are moist. Neck is supple. There is no elevated jugular venous pressure. No carotid] bruit is heard. HEART EXAMINATION: Heart S1-S2 a systolic murmur is heard, aortic valve click is also heard CHEST EXAMINATION:lungs reveal fine crackles to the left posterior base ABDOMEN: Soft, nontender. Bowel sounds are heard. No organomegaly noted. EXTREMITIES: 2+ peripheral pulses with no evidence of peripheral edema and no calf tenderness noted. NEUROLOGIC patient is awake, alert and oriented 3 . Results 12/13/18 06:36 12/13/18 06:36 Cardiac Enzymes 12/12/18 12/12/18 12/13/18 Range/Units 19:05 19:05 00:53 AST 25 (17-59) U/L Troponin I <0.012 0.740 H* (0.000-0.034) ng/mL 12/13/18 Range/Units 06:36 AST (17-59) U/L Troponin I 1.200 H* (0.000-0.034) ng/mL Coagulation 12/12/18 12/13/18 Range/Units 19:05 06:36 PT 42.5 H 43.4 H (9.0-12.0) sec APTT 45.7 H 45.9 H (22.0-30.0) sec Lipids 12/13/18 Range/Units 06:36 Triglycerides 155 H (<150) mg/dL Cholesterol 176 (<200) mg/dL HDL Cholesterol 34 L (40-60) mg/dL CBC 12/12/18 12/13/18 Range/Units 19:05 06:36 WBC 7.5 7.5 (3.8-10.6) k/uL RBC 5.14 4.96 (4.30-5.90) m/uL Hgb 14.6 13.9 (13.0-17.5) gm/dL Hct 41.5 40.5 (39.0-53.0) % Plt Count 139 L 143 L (150-450) k/uL Comprehensive Metabolic Panel 12/12/18 12/13/18 Range/Units 19:05 06:36 Sodium 136 L 139 (137-145) mmol/L Potassium 4.3 4.4 (3.5-5.1) mmol/L Chloride 100 106 (98-107) mmol/L Carbon Dioxide 25 24 (22-30) mmol/L BUN 19 18 (9-20) mg/dL Creatinine 1.11 0.92 (0.66-1.25) mg/dL Glucose 218 H 130 H (74-99) mg/dL Calcium 9.1 9.3 (8.4-10.2) mg/dL AST 25 (17-59) U/L ALT 38 (21-72) U/L Alkaline Phosphatase 90 (38-126) U/L Total Protein 6.5 (6.3-8.2) g/dL Albumin 4.2 (3.5-5.0) g/dL Current Medications Generic Name Dose Route Start Last Admin Trade Name Freq PRN Reason Stop Dose Admin Aspirin 325 mg 12/13/18 09:00 Aspirin PO DAILY [facility] Atorvastatin Calcium 80 mg 12/13/18 21:00 Lipitor PO HS [facility] Clopidogrel Bisulfate 75 mg 12/13/18 21:00 Plavix PO HS [facility] Diltiazem HCl 125 mg/ Sodium 125 mls @ 5 mls/hr 12/12/18 19:45 12/12/18 20:06 Chloride IV 5 mg/hr .Q24H [facility] 5 mls/hr Administration 5 MG/HR Metoprolol Tartrate 25 mg 12/13/18 21:00 Lopressor PO HS [facility] Nitroglycerin 0.4 mg 12/12/18 20:46 Nitrostat SUBLINGUAL Q5M PRN Chest Pain Intake and Output 12/12/18 12/13/18 12/13/18 22:59 06:59 14:59 Intake Total 10 Balance 10 Intake: Intake, IV Titration 10 Amount Diltiazem 125 mg In 10 Sodium Chloride 0.9% 100 ml @ 5 MG/HR 5 mls/hr IV .Q24H [facility] Rx#:[id number] Other: Voiding Method Toilet # Voids 1 Weight 86.183 kg 93.5 kg 12/13/18 06:36 12/13/18 06:36 EKG Interpretations (text) Initial EKG shows atrial fibrillation with a rapid ventricular response Assessment and Plan Plan: Assessment and plan #1 symptoms of chest discomfort, could be secondary to atrial fibrillation with rapid ventricular response, symptoms seemed to dissipate once the patient had adequate heart rate control. Cannot rule out acute coronary syndrome in view of the fact the patient has troponins elevated and history of prior stent. Troponin 0.012, 0.740, 1.2. Ekg initially showed atrial fibrillation with rapid ventricular response, patient now in normal sinus rhythm. #2 known history of coronary artery disease with prior LAD stenting in 2016 #3 history of aortic valve replacement with [facility]. Sumit's aortic valve in 2000, on Coumadin, INR 4.5 #4 hypertension #5 hyperlipidemia #6 history of seizures Plan We will obtain an echocardiogram with Doppler study. We will hold the patient's Coumadin today as he INR is 4.5. Continue Plavix, Lipitor, increase dose of metoprolol to 25 mg twice a day and discontinue the IV Cardizem drip. Further recommendations to follow. DNP note has been reviewed, I agree with a documented findings and plan of care. Patient was seen and examined.
[2018-12-13] MEDS ORDERED: METOPROLOL TARTRATE 25 MG TAB PO STA (11:00)
--- NOTE | 2018-12-13 12:15 | P.HPIM ---
History of Present Illness This is a pleasant 63 years old male with past medical history of coronary artery disease status post stent placement, hypertension, hyperlipidemia, seizure disorder, aortic valve replacement 2000, he does not follow up with his doctor. After he got home yesterday he was started having central chest pain, nonradiating about 7/10 in severity felt like a numbness or nonspecific. Nonradiating. Associated with mild dyspnea and palpitation. On presentation to the emergency room his palpitation get worse Vitals currently stable, on admission he was tachycardic 144-192. Labs showing unremarkable CBC and BMP and liver enzymes. However he has elevated troponin less than 0.01 and 0.74 and 1.2. INR is elevated with 4.5. EKG showing atrial fibrillation's with RVR at 157, chest x-ray: No acute process. Emergency room patient was started on Cardizem drip. He never smoked, occasional alcohol. No illicit tracts Review of Systems CONSTITUTIONAL: No fever, no malaise, no fatigue. HEENT: No recent visual problems or hearing problems. Denied any sore throat. CARDIOVASCULAR: No orthopnea, PND, no palpitations, no syncope. PULMONARY: No shortness of breath, no cough, no hemoptysis. GASTROINTESTINAL: No diarrhea, no nausea, no vomiting, no abdominal pain. Normoactive bowel sounds. NEUROLOGICAL: No headaches, no weakness, no numbness. HEMATOLOGICAL: Denies any bleeding or petechiae. GENITOURINARY: Denies any burning micturition, frequency, or urgency. MUSCULOSKELETAL/RHEUMATOLOGICAL: Denies any joint pain, swelling, or any muscle pain. ENDOCRINE: Denies any polyuria or polydipsia. Past Medical History Past Medical History: Coronary Artery Disease (CAD), Hyperlipidemia, Hypertension, Seizure Disorder Additional Past Medical History / Comment(s): 04/17/15 Pt presented to [facility] ER via EMS. Pt is unable to participate in obtaining PMH at this time. He is unable to carry on conversation - moans on occasion. is at bedside and assists with PMH. Pt was last seen last nite acting normally. 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 He was nonverbal except for moaning and groaning. She went into the kitchen to call someone for help and when she went back to the bedroom pt was sitting on edge of bed-got up with staggering gait to go to bathroom and sat on the toilet. then called 911 and noted pt to start shaking and then fell and struck head on floor and possible corner of bed. He is admitted with clinical impression of AMS, SIRS, lactic acidosis. states pt's only known medical history is an aortic valve replacement in 2000 and that he is noncompliant with his coumadin and rarely goes to see a doctor. History of Any Multi-Drug Resistant Organisms: None Reported Past Surgical History: Coronary Bypass/CABG Additional Past Surgical History / Comment(s): AVR 2000. Past Anesthesia/Blood Transfusion Reactions: No Reported Reaction Past Psychological History: No Psychological Hx Reported Additional Psychological History / Comment(s): Pt resides with his spouse and children ages 21 and 24yrs. He is independent. He uses no assistive device. Smoking Status: Never smoker Past Alcohol Use History: None Reported Past Drug Use History: None Reported - Past Family History Father Family Medical History: Dementia Additional Family Medical History / Comment(s): Father is 90 yrs old. Mother Family Medical History: No Reported History Additional Family Medical History / Comment(s): Mother in her sleep at age 70. Medications and Allergies Home Medications Medication Instructions Recorded Confirmed Type Warfarin Sodium 5 mg PO TUWEFR 11/09/15 12/12/18 History Atorvastatin [Lipitor] 80 mg PO HS 02/26/16 12/12/18 History Metoprolol Tartrate 25 mg PO HS 08/26/16 12/12/18 History Nitroglycerin Sl Tabs [Nitrostat] 0.4 mg SUBLINGUAL Q5M PRN #25 tab 08/31/16 12/12/18 Rx Aspirin 81 mg PO HS 12/12/18 12/12/18 History Clopidogrel [Plavix] 75 mg PO HS 12/12/18 12/12/18 History Warfarin [Coumadin] 7.5 mg PO SUMOTHSA 12/12/18 12/12/18 History Allergies Allergy/AdvReac Type Severity Reaction Status Date / Time No Known Allergies Allergy Verified 12/12/18 19:22 Physical Exam Vitals: Vital Signs Temp Pulse Pulse Resp BP BP Pulse Ox 12/13/18 08:00 98.1 F 80 18 152/75 97 12/13/18 03:40 97.9 F 74 18 115/70 94 L 12/12/18 23:41 88 18 12/12/18 22:20 88 18 117/78 97 12/12/18 22:00 96 12/12/18 21:56 98.4 F 94 18 134/82 96 12/12/18 21:36 97 18 120/80 98 12/12/18 20:14 144 H 18 137/86 96 12/12/18 19:07 192 H 18 127/82 98 12/12/18 19:02 98.4 F 167 H 22 130/78 97 Intake and Output 12/12/18 12/13/18 12/13/18 22:59 06:59 14:59 Intake Total 10 Balance 10 Intake: Intake, IV Titration 10 Amount Diltiazem 125 mg In 10 Sodium Chloride 0.9% 100 ml @ 5 MG/HR 5 mls/hr IV .Q24H [facility] Rx#:[id number] Other: Voiding Method Toilet Toilet # Voids 1 Weight 86.183 kg 93.5 kg GENERAL: The patient is alert and oriented x3, not in any acute distress. Well developed, well nourished. HEENT: Pupils are round and equally reacting to light. EOMI. No scleral icterus. No conjunctival pallor. Normocephalic, atraumatic. No pharyngeal erythema. No thyromegaly. CARDIOVASCULAR: S1 and S2 present. No murmurs, rubs, or gallops. PULMONARY: Chest is clear to auscultation, no wheezing or crackles. ABDOMEN: Soft, nontender, nondistended, normoactive bowel sounds. No palpable organomegaly. MUSCULOSKELETAL: No joint swelling or deformity. EXTREMITIES: No cyanosis, clubbing, or pedal edema. NEUROLOGICAL: Gross neurological examination did not reveal any focal deficits. SKIN: No rashes. No petechiae Results CBC & Chem 7: 12/13/18 06:36 12/13/18 06:36 Labs: Abnormal Lab Results - Last 24 Hours (Table) 12/12/18 12/12/18 12/12/18 Range/Units 19:05 19:05 19:05 RDW 16.2 H (11.5-15.5) % Plt Count 139 L (150-450) k/uL PT 42.5 H (9.0-12.0) sec INR 4.4 H (<1.2) APTT 45.7 H (22.0-30.0) sec Sodium 136 L (137-145) mmol/L Glucose 218 H (74-99) mg/dL Troponin I (0.000-0.034) ng/mL Triglycerides (<150) mg/dL LDL Cholesterol, Calc (0-99) mg/dL HDL Cholesterol (40-60) mg/dL TSH 6.270 H (0.465-4.680) mIU/L 12/13/18 12/13/18 12/13/18 Range/Units 00:53 06:36 06:36 RDW (11.5-15.5) % Plt Count (150-450) k/uL PT (9.0-12.0) sec INR (<1.2) APTT (22.0-30.0) sec Sodium (137-145) mmol/L Glucose 130 H (74-99) mg/dL Troponin I 0.740 H* 1.200 H* (0.000-0.034) ng/mL Triglycerides 155 H (<150) mg/dL LDL Cholesterol, Calc 111 H (0-99) mg/dL HDL Cholesterol 34 L (40-60) mg/dL TSH (0.465-4.680) mIU/L 12/13/18 12/13/18 Range/Units 06:36 06:36 RDW (11.5-15.5) % Plt Count 143 L (150-450) k/uL PT 43.4 H (9.0-12.0) sec INR 4.5 H (<1.2) APTT 45.9 H (22.0-30.0) sec Sodium (137-145) mmol/L Glucose (74-99) mg/dL Troponin I (0.000-0.034) ng/mL Triglycerides (<150) mg/dL LDL Cholesterol, Calc (0-99) mg/dL HDL Cholesterol (40-60) mg/dL TSH (0.465-4.680) mIU/L Thrombosis Risk Factor Assmnt - Choose All That Apply Each Factor Represents 1 point: Obesity (BMI >25) Each Risk Factor Represents 2 Points: Age 61-74 years Thrombosis Risk Factor Assessment Total Risk Factor Score: 3 Thrombosis Risk Factor Assessment Level: Moderate Risk Assessment and Plan Assessment: A. fib with RVR Elevated troponin, rule out acute coronary syndrome History of coronary artery disease status post stent on Coumadin Coagulopathy secondary to supratherapeutic INR from Coumadin. Present on admission History of aortic valve replacement 2000 on Coumadin Hypertension Hyperlipidemia History of seizure disorder Plan: This is a pleasant 63 years old male who presents with A. fib and RVR and elevated troponins. Check echocardiogram, call cardiology consult. Pain management. Monitor heart rate and troponin. Monitor INR and hold Coumadin until INR is therapeutic with a target 2.5-3.5 or his aortic valve disease Labs and medication were reviewed.. Continue same treatment. Continue with symptomatic treatment. Resume home medication. Monitor lytes and vitals. DVT and GI prophylaxis. Further recommendations of the clinical course of the patient DVT prophylaxis:on Coumadin GI Prophylaxis: Pepcid PT/OT: Pending Prognosis is guarded
--- NOTE | 2018-12-13 12:31 | ECHOF ---
Referral Reason:chest pain/afib MEASUREMENTS -------- HEIGHT: 177.8 cm WEIGHT: 93.4 kg BP: RVIDd: 3.0 cm (< 3.3) IVSd: 1.5 cm (0.6 - 1.1) LVIDd: 4.0 cm (3.9 - 5.3) LVPWd: 1.4 cm (0.6 - 1.1) IVSs: 2.0 cm LVIDs: 2.8 cm LVPWs: 1.7 cm LAESV Index (A-L): 25.62 ml/m Ao Diam: 2.7 cm (2.0 - 3.7) AV Cusp: 1.3 cm (1.5 - 2.6) EPSS: 1.0 cm MV E Garcia: 0.92 m/s MV DecT: 184 ms MV A Garcia: 1.09 m/s MV E/A Ratio: 0.84 AV maxP.22 mmHg AV meanP.44 mmHg RAP: 5.00 mmHg RVSP: 38.74 mmHg MV EF SLOPE: 39.52 mm/s (70 - 150) MV EXCURSION: 1.33 cm (> 18.000) FINDINGS -------- Sinus rhythm. This was a technically adequate study. The left ventricular size is normal. There is moderate concentric left ventricular hypertrophy. O verall left ventricular systolic function is normal with, an EF between 55 - 60 %. LVOT Obstruction The right ventricle is normal in size. Left atrium is normal size by volume. The right atrial size is normal. Interatrial and interventricular septum intact. Trace to mild aortic regurgitation. Peak/mean gradient across the valve is 66.22mmHg / 41.44mmHg. 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 The mitral valve leaflets are mildly thickened. Mild mitral regurgitation is present. Mild tricuspid regurgitation present. There is mild pulmonary hypertension. The right ventricular systolic pressure, as measured by Doppler, is 38.74mmHg. There is no pulmonic regurgitation present. The aortic root size is normal. The inferior vena cava was not well visualized. There is no pericardial effusion. CONCLUSIONS -------- 1. Sinus rhythm. 2. The left ventricular size is normal. 3. There is moderate concentric left ventricular hypertrophy. 4. Overall left ventricular systolic function is normal with, an EF between 55 - 60 %. 5. LVOT Obstruction 6. Left atrium is normal size by volume. 7. Trace to mild aortic regurgitation. 8. Peak/mean gradient across the valve is 66.22mmHg / 41.44mmHg. 9. 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 10. The mitral valve leaflets are mildly thickened. 11. Mild mitral regurgitation is present. 12. Mild tricuspid regurgitation present. 13. There is mild pulmonary hypertension. 14. There is no pulmonic regurgitation present. 15. The aortic root size is normal. 16. The inferior vena cava was not well visualized. 17. There is no pericardial effusion. BACKEND PY[employer]ON DEVELOPER: Casandra Green RDCS
[2018-12-13] MEDS: METOPROLOL TARTRATE 25 MG TAB PO SCH (20:04)
[2018-12-13 20:07] VITALS: TEMP 97.1
[2018-12-13] MEDS ORDERED: METOPROLOL TARTRATE 25 MG TAB PO SCH (21:00)
[2018-12-13] MEDS ORDERED: CLOPIDOGREL 75 MG TAB PO SCH (21:00)
[2018-12-13] MEDS ORDERED: ATORVASTATIN 80 MG TAB PO SCH (21:00)
[2018-12-14 06:29] LABS: Basophils # (A) 0.1 k/uL (0-0.2); Basophils % (A) 2 %; Eosinophils # (A) 0.2 k/uL (0-0.7); Eosinophils % (A) 4 %; HCT 40.9 % (39.0-53.0); HGB 13.5 gm/dL (13.0-17.5); Lymphocytes # (A) 0.5 k/uL (1.0-4.8); Lymphocytes % (A) 8 %; MCH 27.4 pg (25.0-35.0); MCHC 33.1 g/dL (31.0-37.0); MCV 82.8 fL (80.0-100.0); Mean Platelet Volume 6.6; Monocytes # (A) 0.5 k/uL (0-1.0); Monocytes % (A) 7 %; Neutrophils # (A) 4.9 k/uL (1.3-7.7); Neutrophils % (A) 78 %; Platelet Count 130 k/uL (150-450); RBC 4.94 m/uL (4.30-5.90); RDW 14.4 % (11.5-15.5); WBC 6.3 k/uL (3.8-10.6)
[2018-12-14 06:52] LABS: INR 2.4 (<1.2); Prothrombin Time 23.4 sec (9.0-12.0)
[2018-12-14] MEDS: METOPROLOL TARTRATE 25 MG TAB PO SCH (09:25)
[2018-12-14 09:29] VITALS: BP 138/75; PULSE 72; RESP 18
--- NOTE | 2018-12-14 12:11 | P.DS ---
Providers Date of admission: 12/12/18 20:46 Attending physician: Jay Millard MD Consults: 12/12/18 20:46 Consult Physician Urgent Consulting Provider: [facility] Consult Reason/Comments: A. fib with rapid ventricular response Do you want consulting provider notified?: Yes Primary care physician: Fernie García Hospital Course: Diagnoses: A. fib with RVR Elevated troponin, rule out acute coronary syndrome History of coronary artery disease status post stent on Coumadin Coagulopathy secondary to supratherapeutic INR from Coumadin. Present on admission History of aortic valve replacement 2000 on Coumadin Hypertension Hyperlipidemia History of seizure disorder Hospital course: This is a pleasant 63 years old male with past medical history of coronary artery disease status post stent placement, hypertension, hyperlipidemia, seizure disorder, aortic valve replacement 2000 on Coumadin, he does not follow up with his doctor. Who presents because of chest pain, associated with mild d yspnea and palpitation, patient found to have A. fib with RVR and elevated troponins. Patient has been evaluated by attendant honor bar. Patient was started on metoprolol and his heart rate is controlled currently 60s to 80s. On admission his INR was supratherapeutic at 4.5, his Coumadin was held and his INR came down to 2.4 and his Coumadin was resumed and patient was instructed to follow up check and his INR closely within 2-3 days and he agrees. On the day of discharge patient denies chest pain, no dyspnea. No palpitation. No change in urine or bowel habits. No abdominal pain or nausea vomiting. No weakness or numbness or headaches. No fever. Patient was cleared by cardiology team for discharge. Patient was instructed to follow up with his PCP and attendant honor bar within 1 week and he agrees. Patient was instructed to resume his Coumadin and Plavix but not aspirin upon discharge and he agrees. Also he was instructed to increase the dose of metoprolol from epigastric twice daily and prescription is provided for him. Patient will go tomorrow and check his INR with attendant honor bar office and while he is at the office he is going to make an appointment with his attendant honor bar Dr. Russell within a week physical exam Gen.: Patient alert awake and oriented X 3, NOT IN DISTRESS CVS: s1-s2, RRR, no murmur CHEST:bilateral CTA, no wheezing or crepitation Abdomen: Soft, no tenderness, no distention, positive bowel sounds Extremities: No leg edema or induration Plan - Discharge Summary New Discharge Prescriptions: New Metoprolol Tartrate [Lopressor] 25 mg PO BID #60 tab Continue Warfarin Sodium 5 mg PO Atorvastatin [Lipitor] 80 mg PO HS Nitroglycerin Sl Tabs [Nitrostat] 0.4 mg SUBLINGUAL Q5M PRN #25 tab PRN Reason: Chest Pain Warfarin [Coumadin] 7.5 mg PO SUMOTHSA Clopidogrel [Plavix] 75 mg PO HS Discontinued Metoprolol Tartrate 25 mg PO HS Aspirin 81 mg PO HS Discharge Medication List Warfarin Sodium 5 mg PO TUWEFR 11/09/15 [History] Atorvastatin [Lipitor] 80 mg PO HS 02/26/16 [History] Nitroglycerin Sl Tabs [Nitrostat] 0.4 mg SUBLINGUAL Q5M PRN #25 tab 08/31/16 [Rx] Clopidogrel [Plavix] 75 mg PO HS 12/12/18 [History] Warfarin [Coumadin] 7.5 mg PO SUMOTHSA 12/12/18 [History] Metoprolol Tartrate [Lopressor] 25 mg PO BID #60 tab 12/14/18 [Rx] Follow up Appointment(s)/Referral(s): Annalise Russell MD [STAFF PHYSICIAN] - 1 Week (Spoke to mounter clarinets. Office to call with appointment time.) Fernie García MD [Primary Care Provider] - 1-2 days
--- NOTE | 2018-12-14 12:51 | P.PN ---
Subjective Progress Note Date: 12/14/18 This is a pleasant 63-year-old gentleman who follows regularly with Dr. Tian Russell in the office. Patient has a known history of aortic valve replacement with a mechanical [employer] valve in 2000 , Coronary artery disease with prior LAD stenting in 2017, hypertension, hyperlipidemia, seizure disorder, he presents to the hospital on this occasion with symptoms of chest discomfort with the feeling that his heart was racing fast. He also noticed himself to be a mildly short of breath, he denied any dizziness or lightheadedness. His EKG on presentation here showed atrial fibrillation with a rapid ventricular response. Patient denies any prior history of atrial fibrillation. Chest x-ray did not show any active cardiopulmonary disease. Blood pressure 115/70 with a heart rate in the 70s, temperature 90.7 point 90s 94% on room air. White blood cell count 7.5, hemoglobin 13.9, platelet count 143. Pro time 43.4 with an INR 4.5, sodium 139, potassium 4.4, BUN 18, creatinine 0.9. Troponin 0.012, 0.740, 1.2. Cholesterol 176, triglycerides 155, LDL 111, HDL 34, TSH is 6.2 with a free T4 of 1.2. At the time of my examination this morning, patient is currently chest pain-free. He is on IV Cardizem drip. He has converted to normal sinus rhythm, heart rate in the 80s this morning. 12/14/2018 Patient was seen and examined this morning, continues at this time to be in normal sinus rhythm. 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 INR today is 2.4. Dr. Valdez did have a discussion with Dr. MIRYAM Russell regarding the patient this morning and the decision was made to discharge the patient home at this time and make a follow-up appointment with Dr. Russell in the office. Objective - Vital Signs Vital signs: Vital Signs Temp 97.1 F L 12/14/18 08:00 Pulse 72 12/14/18 08:00 Resp 18 12/14/18 08:00 BP 138/75 12/14/18 08:00 Pulse Ox 96 12/14/18 08:00 Intake & Output 12/13/18 12/14/18 12/14/18 18:59 06:59 18:59 Intake Total 600 462 Output Total 600 Balance 600 -138 Weight 93 kg Intake: Oral 600 462 Output: Urine 600 Other: Voiding Method Toilet Toilet # Voids 0 2 1 - Exam PHYSICAL EXAMINATION: GENERAL: 63-year-old gentleman in no acute distress at the time of my examination HEENT: Head is atraumatic, normocephalic. Pupils equal, round. Sclera anicteric. Conjunctiva are clear. Mucous membranes of the mouth are moist. Neck is supple. There is no elevated jugular venous pressure. No carotid] bruit is heard. HEART EXAMINATION: Heart S1-S2 a systolic murmur is heard, aortic valve click is also heard CHEST EXAMINATION:lungs reveal fine crackles to the left posterior base ABDOMEN: Soft, nontender. Bowel sounds are heard. No organomegaly noted. EXTREMITIES: 2+ peripheral pulses with no evidence of peripheral edema and no calf tenderness noted. NEUROLOGIC patient is awake, alert and oriented 3 - Labs CBC & Chem 7: 12/14/18 06:12 12/13/18 06:36 Labs: Abnormal Lab Results - Last 24 Hours (Table) 12/14/18 12/14/18 Range/Units 06:12 06:12 Plt Count 130 L (150-450) k/uL Lymphocytes # 0.5 L (1.0-4.8) k/uL PT 23.4 H (9.0-12.0) sec INR 2.4 H (<1.2) Assessment and Plan Plan: Assessment and plan #1 symptoms of chest discomfort, could be secondary to atrial fibrillation with rapid ventricular response, symptoms seemed to dissipate once the patient had adequate heart rate control. Cannot rule out acute coronary syndrome in view of the fact the patient has troponins elevated and history of prior stent. Troponin 0.012, 0.740, 1.2. Ekg initially showed atrial fibrillation with rapid ventricular response, patient now in normal sinus rhythm. #2 known history of coronary artery disease with prior LAD stenting in 2017 #3 history of aortic valve replacement with [employer]'s aortic valve in 2000, on Coumadin, INR 2.4 #4 hypertension #5 hyperlipidemia #6 history of seizures Plan From cardiology's perspective, patient may be able to be discharged home today on Coumadin, maintaining an eye in the ER in the range of 3-3.5, Plavix 75 mg daily. Follow-up appointment with Dr. Tian Russell in the office post discharge. DNP note has been reviewed, I agree with a documented findings and plan of care. Patient was seen and examined.
== END 2018-12-14 12:55 | disposition home or self-care (01) | DRG 309 ==
LOC: EC 18:45 → 3SCARD 20:46
PROVIDERS: ADMIT Internal Medicine; ATTEND Internal Medicine
DX: I48.91 Unspecified atrial fibrillation (principal); T82.857A Stenosis of other cardiac prosthetic devices, implants and grafts, initial encounter; Y83.1 Surgical operation with implant of artificial internal device as the cause of abnormal reaction of the patient, or of later complication, without mention of misadventure at the time of the procedure; E78.5 Hyperlipidemia, unspecified; F17.210 Nicotine dependence, cigarettes, uncomplicated; G40.909 Epilepsy, unspecified, not intractable, without status epilepticus; I10 Essential (primary) hypertension; I25.119 Atherosclerotic heart disease of native coronary artery with unspecified angina pectoris; R79.1 Abnormal coagulation profile; Z79.01 Long term (current) use of anticoagulants; Z79.82 Long term (current) use of aspirin; Z79.899 Other long term (current) drug therapy; T45.516A Underdosing of anticoagulants, initial encounter; Z91.128 Patient's intentional underdosing of medication regimen for other reason; Z91.19 Patient's noncompliance with other medical treatment and regimen; Z95.1 Presence of aortocoronary bypass graft; Z95.2 Presence of prosthetic heart valve; Z95.5 Presence of coronary angioplasty implant and graft
CPT/HCPCS: 36415; 71046; 80048; 80053; 80061; 83735; 84439; 84443; 84484; 85025; 85610; 85730; 93005; 93306; 96365; 96366; 96376; 99291

== ENCOUNTER 2024-02-27 10:35 | Day surgery (SDC) | payer BC ==
[2024-02-27] MEDS: SODIUM CHLORIDE 0.9% 500 ML 500 ML IV ONE (10:59)
[2024-02-27 11:27] VITALS: TEMP 98
[2024-02-27] MEDS: BENZOCAINE SPRAY 1 EACH MM ONE (11:57)
[2024-02-27] MEDS: fentaNYL (PF) 50 MCG/ML 2 ML AMP IVP ONE (12:01)
[2024-02-27] MEDS: MIDAZOLAM 2 MG/2 ML VIAL IVP ONE ×2 (12:01→12:05)
[2024-02-27 12:24] LABS: INR 2.1 (<1.2); Prothrombin Time 21.2 sec (10.0-12.5)
--- NOTE | 2024-02-27 12:52 | P.TEE ---
Description of Procedure(s): Procedure performed: Transesophageal Echocardiogram with color flow doppler, pulsed wave doppler and continuous wave doppler, moderate conscious sedation Moderate conscious sedation: Moderate conscious sedation was supplied with direct supervision of myself using Versed and Fentanyl. Complications: none Indications: Aortic stenosis PROCEDURE: After the risks, benefits and alternatives of the above mentioned procedure was explained in detail with the patient, informed consent was obtained. Patient was brought to the lab in a fasting state. Patient was given IV Versed and Fentanyl for sedation. The throat was sprayed with Hurricane to anesthetize the throat. A lubricated Omni probe was then introduced into the esophagus and stomach and multiple views were obtained. 2D echo with color flow doppler, pulsed wave doppler and continuous wave doppler was utilized. Agitated saline bubbles were injected to assess for any intra-atrial shunt. The probe was then removed. Patient tolerated the procedure well. Patient was transferred to the post procedure area in stable and satisfactory condition. FINDINGS: 1. There is a mechanical aortic valve with moderately increased velocities. Aortic root not coplanar with some difficulty seeing both leaflets. Well visualized and normal functioning right/inferior leaflet with poorer visualized noncoronary cusp leaflet and appears some possible decreased mobility. Consider fluoro assessment or CTA if concern of leaflet dysfunction. Trace aortic insufficiency. 2. The mitral valve appears be normal with mild regurgitation. 3. Tricuspid valve appears to be normal. 4. There is an aneurysmal atrial septum with small PFO by bubble study. 5. Left atrial appendage is free of clot. 6. Left ventricular EF 55-60%
[2024-02-27 14:09] VITALS: RESP 16
[2024-02-27 14:13] VITALS: BP 129/67; PULSE 64
== END 2024-02-27 13:47 | disposition home or self-care (01) ==
LOC: CATHCVL 10:35
PROVIDERS: ATTEND Internal Medicine
DX: I25.10 Atherosclerotic heart disease of native coronary artery without angina pectoris (principal); I35.2 Nonrheumatic aortic (valve) stenosis with insufficiency; I48.0 Paroxysmal atrial fibrillation; I10 Essential (primary) hypertension; Z98.61 Coronary angioplasty status; Z95.4 Presence of other heart-valve replacement; Z79.82 Long term (current) use of aspirin; Z79.899 Other long term (current) drug therapy
CPT/HCPCS: 93312; 93320; 93325; 85610; J2250; J3010